=== PATIENT | male | born 1940 | race Caucasian/White ===

== ENCOUNTER 2016-08-19 08:16 | Emergency (ER) | payer MEDICARE, OTHER ==
[~2016-08-19] VITALS: Ht 177.8 cm; Wt 134.1 kg
[~2016-08-19 08:16] MED LIST: AMOX500T2 PO; ASPI-973 PO; ATEN25TA PO; DUTA0.5C2 PO; ENOX150D SUBQ; ESCI10TA3 PO; GABA-502 PO; INSU100V27 SUBQ; INSU100V7 SUBQ; KEN1O TOPICAL; OXYB5TAB10 PO; SIMV20TA4 PO; SULF1TAB7 PO; TAMS0.4C29 PO; WARF2.5T82 PO
[2016-08-19 08:25] VITALS: BP 113/76; PULSE 76; RESP 20; O2SAT 96
--- NOTE | 2016-08-19 08:37 | ED.REPORT ---
HPI-General Illness Date of Service August 19, 2016 ED Provider: Henok Manzo DO The pt is a 75 y/o male anticoagulated on Warfarin w/ a hx of DVTs, HTN, presenting to the ED complaining of L eye bleeding onset 3 days ago. He is also experiencing whole body aches, left arm muscle tightness, slight vision decrease , and left jaw pain. He was told 2 days ago that his Warfarin levels were too high to measure. He denies vomiting blood, blood in stool, black or tarry stools , gingival bleeding during brushing, cough, fever, or chills. Nursing Notes Stated Complaint: BLEEDING IN LT EYE/WARFARIN HIGH Chief Complaint: General Complaint Nursing Notes Reviewed: Yes Allergies: Coded Allergies: linezolid (Verified Allergy, Severe, thrombocytopenia, 12/13/15) drops platelet count Scheduled Amoxicillin (Amoxicillin) 500 Mg Tablet 500 MG PO TID Aspirin (Aspirin) 81 Mg Tablet 81 MG PO DAILY Atenolol (Atenolol) 25 Mg Tablet 25 MG PO DAILY Dutasteride (Avodart) 0.5 Mg Capsule 0.5 MG PO DAILY Escitalopram Oxalate (Lexapro) 10 Mg Tablet 20 MG PO DAILY Gabapentin (Gabapentin) 300 Mg Capsule 300 MG PO QID Insulin Glargine (Lantus U100 Insulin Vial) 100 Unit/Ml Vial 12 UNIT SUBQ BID Insulin Regular, Human (Novolin-R U100 Insulin Vial) 100 Unit/1 Ml Vial UNITS SUBQ TIDAC Per sliding scale protocol Oxybutynin Chloride (Oxybutynin Chloride) 5 Mg Tablet 5 MG PO BID Simvastatin (Simvastatin) 20 Mg Tablet 20 MG PO HS Tamsulosin ER (Tamsulosin ER) 0.4 Mg Cap.er.24h 0.4 MG PO DAILY Warfarin Sodium (Warfarin Sodium) 3 Mg Tablet 3 MG PO DAILY General Time Seen by MD: 08:37 Chief Complaint Other (Bleeding in L eye ) Hx Obtained From: Patient Arrived By: Walk-in Sudden in Onset?: Yes Onset Occurred: 3 days ago Symptom Duration: Since onset Recent Healthcare: No recent hospitalization, Recent doctor visit Past Medical History Past Medical History History of complete heart block Obstructive sleep apnea History of MRSA arthritis of right knee Chronic right bundle-branch block dyslipidemia History of renal insufficiency History of kidney stones Diabetes with neuropathy Hypertension History of IgG deficiency history of hypogonadism Skin cancer Reports: Dementia Past Surgical History Pacemaker Left knee Lap band surgery Right knee sugery x 9 IVC filter for LE DVT 2010 at [facility] in [place] Family History Noncontributory Smoking History Former Smoker Social History Alcohol Use: "Social" Drug Use: Denies drug use Other Social History: Good social support, Local resident Ambulatory Status Independent Review of Systems L eye bleeding Myalgia L arm muscle "tightness" Slight vision decrease L jaw pain Full Review of Systems Constitutional: Denies: Chills, Fever Respiratory: Denies: Non-productive cough GI: Denies: Bloody/tarry stool, Vomiting Complete sys rev & neg: except as marked. Physical Exam Vital Signs Vital Signs Date Time Temp Pulse Resp B/P Pulse Ox O2 Delivery O2 Flow Rate FiO2 08/19/16 08:25 36.0 76 20 113/76 96 Room Air Initial VS: Reviewed General/Constitutional: Well-developed, Well-nourished ENT: Mucous membranes moist, Conjunctiva normal, No scleral icterus Neck: Supple, Non-tender, Full range of motion Respiratory: Breath sounds normal, Clear to auscultation, No respiratory distress Cardiovascular: Regular rate & rhythm, Heart sounds normal, Intact distal pulses Abdomen / GI: Soft, Non-tender, No guarding, No rebound, No distention Back: No CVA tenderness Extremities: Vascular intact, Neuro intact, No swelling, No tenderness Skin: Warm, Dry, No cyanosis Neurologic: Alert, Oriented, Nonfocal Psychiatric: Mood/affect normal, Behavior normal, Normal thought content Head / Eyes: Normocephalic, PERRL, EOMI Outer margin of the conjunctiva has subconjunctival hemorrhage. Funduscopic exam normal 20 40 Left 20 40 Right 20 30 Bilat Interpretation & Diagnostics Lab Results Interpretation Result Diagram: 08/19/16 0904 08/19/16 0904 Test 08/19/16 09:04 White Blood Count 8.5th/mm3 (3.8-10.1) Red Blood Count 3.78mil/mm3 (4.40-5.80) Hemoglobin 9.3g/dL (13.8-17.2) Hematocrit 30.8% (41.0-50.0) Mean Corpuscular Volume 81.5fL (81-100) Mean Corpuscular Hemoglobin 24.6pg (27.0-35.0) Mean Corpuscular Hemoglobin Concent 30.2% (32.0-37.0) Red Cell Distribution Width 16.8% (12.3-15.4) Platelet Count 302bil/L (150-400) Neutrophils (%) (Auto) 70.9% (40-74) Lymphocytes (%) (Auto) 19.5% (14-46) Monocytes (%) (Auto) 7.9% (4-12) Eosinophils (%) (Auto) 1.3% (0-5) Basophils (%) (Auto) 0.2% (0-3) Prothrombin Time 200.2sec (8.1-12.5) Prothromb Time International Ratio 18.89ratio Sodium Level 139mEq/L (134-144) Potassium Level 4.6mEq/L (3.5-5.2) Chloride Level 101mEq/L (97-108) Carbon Dioxide Level 26mmol/L (18-29) Blood Urea Nitrogen 19mg/dL (8-27) Creatinine 1.04mg/dL (0.76-1.27) Estimat Glomerular Filtration Rate 74mL/min (>59) Glucose Level 204mg/dL (60-99) Calcium Level 9.1mg/dL (8.5-10.1) Re-Eval/Medical Decision Med Decision/Clinical Course Patient has subconjunctival hemorrhage. Does not appear to have life-threatening bleeding. There is a small downtrending in his hemoglobin and hematocrit without any reported signs or symptoms of active bleeding and he is not at a point of requiring transfusion. He is given vitamin K orally, 10 mg. He is instructed to follow-up with the Coumadin clinic tomorrow or return to the ER for more bleeding. Source of Hx: Old records Time of Eval: 10:31 Re-Evaluation/Progress Note: Pt rechecked. Informed pt of plan for treatment. Pt understands and agrees with plan for treatment. F/U instructions and RTER warnings given. All questions addressed. Counseled Regarding: Diagnosis, Need for follow-up, When/why to return to ED Discharge & Departure Primary Impression: Subconjunctival hemorrhage Laterality: left Qualified Code: H11.32 - Conjunctival hemorrhage, left eye Additional Impression: Supratherapeutic INR Disposition: Home Discharge Condition All VS Reviewed: Yes Condition: Stable Additional Instructions: Today your INR was 18. You were given 10 mg of oral vitamin K. The Bleeding in your eye is a subconjunctival hemorrhage and is not life-threatening. Follow -up with the Coumadin clinic tomorrow for repeat evaluation. Obviously, stop taking your Coumadin. Referrals: Clayton Cordoba MD (PCP) Scribe Attestation Portions of this note were transcribed by Klaus Mccabe and Bal Isaacs. I, Dr. Lona Quigley personally performed the history, physical exam and medical decision- making; I reviewed and confirmed the accuracy of the information in the transcribed note. Signed by: Klaus Mccabe and Daniel Alfred, 08/19/16 and 1056. copies to: Clayton Cordoba MD, Timothy Ewdin DELANEY August 19, 2016 08:37 Klaus Mccabe August 19, 2016 08:49 BAL ISAACS August 19, 2016 11:10
[2016-08-19 09:11] LABS: BASOPHILS % (AUTO) 0.2 % (0-3); EOSINOPHILS % (AUTO) 1.3 % (0-5); MONOCYTES % (AUTO) 7.9 % (4-12); Mean Corpuscular Hemoglobin 24.6 pg (27.0-35.0); Mean Corpuscular Volume 81.5 fL (81-100); NEUTROPHILS % (AUTO) 70.9 % (40-74); Platelet Count 302 bil/L (150-400)
[2016-08-19] MEDS ORDERED: WARF3TAB7 PO (09:31)
[2016-08-19 10:22] LABS: INR 18.89 ratio
[2016-08-19] MEDS ORDERED: Phytonadione (Adult) 10 mg/1 mL Inj PO ONE (10:25)
[2016-08-19 11:29] VITALS: BP 130/74; PULSE 60; RESP 16
== END 2016-08-19 11:29 | disposition home or self-care (01) ==
LOC: SED 08:16
DX: H11.32 Conjunctival hemorrhage, left eye (principal); R79.1 Abnormal coagulation profile; E11.9 Type 2 diabetes mellitus without complications; I10 Essential (primary) hypertension; Z95.0 Presence of cardiac pacemaker; Z79.01 Long term (current) use of anticoagulants; Z79.82 Long term (current) use of aspirin; Z79.4 Long term (current) use of insulin; Z87.891 Personal history of nicotine dependence; Z88.8 Allergy status to other drugs, medicaments and biological substances
CPT/HCPCS: 36415; 80048; 85025; 85610; 99283; J3430

== ENCOUNTER 2016-11-18 09:46 | Emergency (ER) | payer MEDICARE, OTHER ==
[~2016-11-18] VITALS: Ht 177.8 cm; Wt 134.1 kg
[~2016-11-18 09:46] MED LIST changes: -ENOX150D SUBQ; -KEN1O TOPICAL; -SULF1TAB7 PO; -WARF2.5T82 PO; +WARF3TAB7 PO
[2016-11-18 09:48] VITALS: BP 145/83; PULSE 72; RESP 18; O2SAT 97
--- NOTE | 2016-11-18 10:19 | ED.REPORT ---
HPI-Dyspnea / Wheezing Date of Service Nov 18, 2016 ED Provider: Dr. Henok Ashby MD A 76 year old male with a history of DVT on Warfarin, MANGO, and hypertension presents to the ED with dyspnea that began a few days ago. Associated symptoms include SOB, wheezing and a non-productive cough since onset. He also reports experiencing recent diarrhea for the past week. Patient denies any history of COPD, CHF, asthma, or use of an inhaler. He denies any new onset lower extremity edema, chest pain, abdominal pain, nausea, vomiting, bloody stool, bloody emesis, fever or chills. The patient denies any recent sick contacts with similar symptoms. Nursing Notes Stated Complaint: SOB, WHEEZING Chief Complaint: Respiratory Complaints Nursing Notes Reviewed: Yes Allergies: Coded Allergies: linezolid (Verified Allergy, Severe, thrombocytopenia, 12/13/15) drops platelet count Scheduled Albuterol HFA (Proair HFA) 8.5 Gm Hfa.aer.ad 2 PUFFS INHALATION Q4H Amoxicillin (Amoxicillin) 500 Mg Tablet 500 MG PO TID Aspirin (Aspirin) 81 Mg Tablet 81 MG PO DAILY Atenolol (Atenolol) 25 Mg Tablet 25 MG PO DAILY Doxycycline Monohyd (Doxycycline Monohyd) 100 Mg Capsule 100 MG PO BID Dutasteride (Avodart) 0.5 Mg Capsule 0.5 MG PO DAILY Escitalopram Oxalate (Lexapro) 10 Mg Tablet 20 MG PO DAILY Gabapentin (Gabapentin) 300 Mg Capsule 300 MG PO QID Insulin Glargine (Lantus U100 Insulin Vial) 100 Unit/Ml Vial 12 UNIT SUBQ BID Insulin Regular, Human (Novolin-R U100 Insulin Vial) 100 Unit/1 Ml Vial UNITS SUBQ TIDAC Per sliding scale protocol Oxybutynin Chloride (Oxybutynin Chloride) 5 Mg Tablet 5 MG PO BID Simvastatin (Simvastatin) 20 Mg Tablet 20 MG PO HS Tamsulosin ER (Tamsulosin ER) 0.4 Mg Cap.er.24h 0.4 MG PO DAILY Warfarin Sodium (Warfarin Sodium) 3 Mg Tablet 3 MG PO DAILY General Time Seen by MD: 10:18 Chief Complaint Shortness of breath Hx Obtained From: Patient Arrived By: Walk-in Sudden in Onset?: No Onset Occurred: 3 days ago Symptom Duration: Since onset Location: : None Associated with: Reports: Cough, Denies: Chest pain, Fever, Nausea, Vomiting Pertinent Negative: Pt denies other symptoms Recent Healthcare: No recent doctor visit, No recent hospitalization Past Medical History Past Medical History 1. History of complete heart block 2. Obstructive sleep apnea 3. History of MRSA arthritis of right knee 4. Chronic right bundle-branch block dyslipidemia 5. History of renal insufficiency 6. History of kidney stones 7. Diabetes with neuropathy 8. Hypertension 9. History of IgG deficiency history of hypogonadism 10. Skin cancer Past Surgical History 1. Pacemaker 2. Left knee 3. Lap band surgery 4. Right knee sugery x 9 5. IVC filter for LE DVT 2010 at [facility] in [place] Family History Noncontributory Smoking History Former Smoker Social History Alcohol Use: "Social" Drug Use: Denies drug use Other Social History: Good social support, Local resident Ambulatory Status Independent Review of Systems Constitutional: Denies: Chills, Fever Respiratory: Reports: Non-productive cough, Shortness of breath, Wheezing Cardiovascular: Denies: Chest pain, Edema Complete sys rev & neg: except as marked. GI: Reports: Diarrhea, Denies: Hematemesis, Hematochezia, Nausea, Vomiting Physical Exam Initial Vital Signs Vital Signs (First) Date Time Temp Pulse Resp B/P Pulse Ox O2 Delivery O2 Flow Rate FiO2 11/18/16 09:48 36.4 72 18 145/83 97 Room Air Initial VS: Reviewed Head / Eyes: Atraumatic, Normocephalic, PERRL Extremities: Vascular intact, Neuro intact, No swelling, No tenderness Skin: Warm, Dry, No cyanosis Neurologic: Alert, Oriented, Nonfocal Psychiatric: Mood/affect normal, Behavior normal, Normal thought content General/Constitutional: Awake, Alert, No acute distress Neck: Atraumatic, Supple, Full range of motion Respiratory / Chest: Atraumatic, No respiratory distress Wheezing / Retractions: Positive: Wheeze insp/exp diffuse Cardiovascular: Heart rate NL, Regular rhythm, Heart sounds NL Interpretation & Diagnostics Lab Results Interpretation Result Diagram: 11/18/16 1014 11/18/16 1014 Test 11/18/16 09:14 11/18/16 10:14 11/18/16 10:23 Prothrombin Time 27.8sec (8.1-12.5) Prothromb Time International Ratio 2.55ratio Magnesium Level 1.8mg/dL (1.6-2.6) Troponin T 0.010ug/L (0.0-0.011) Pro-B-Type Natriuretic Peptide 179.0pg/mL (0-486) Procalcitonin 0.05ng/mL (0.00-0.08) White Blood Count 8.5th/mm3 (3.8-10.1) Red Blood Count 4.83mil/mm3 (4.40-5.80) Hemoglobin 11.7g/dL (13.8-17.2) Hematocrit 38.1% (41.0-50.0) Mean Corpuscular Volume 78.9fL (81-100) Mean Corpuscular Hemoglobin 24.2pg (27.0-35.0) Mean Corpuscular Hemoglobin Concent 30.7% (32.0-37.0) Red Cell Distribution Width 16.7% (12.3-15.4) Platelet Count 309bil/L (150-400) Neutrophils (%) (Auto) 65.6% (40-74) Lymphocytes (%) (Auto) 23.3% (14-46) Monocytes (%) (Auto) 9.2% (4-12) Eosinophils (%) (Auto) 1.3% (0-5) Basophils (%) (Auto) 0.5% (0-3) Sodium Level 140mEq/L (134-144) Potassium Level 4.3mEq/L (3.5-5.2) Chloride Level 103mEq/L (97-108) Carbon Dioxide Level 24mmol/L (18-29) Blood Urea Nitrogen 20mg/dL (8-27) Creatinine 1.03mg/dL (0.76-1.27) Estimat Glomerular Filtration Rate 74mL/min (>59) Glucose Level 151mg/dL (60-99) Calcium Level 9.2mg/dL (8.5-10.1) Total Bilirubin 0.2mg/dL (0.0-1.2) Aspartate Amino Transf (AST/SGOT) 17U/L (0-50) Alanine Aminotransferase (ALT/SGPT) 10U/L (0-44) Alkaline Phosphatase 63U/L (25-160) Total Protein 6.9g/dL (6.4-8.4) Albumin 3.7g/dL (3.4-5.0) Lactic Acid Level 1.7mmol/L (0.4-2.0) ECG Interpretation ECG Interpretation: Junctional rhythm Rate 60 bpm Time: 10:27 Interpreted by: ED physician X-Ray Chest Interpretation Chest Xray Interpretation: IMPRESSION: No acute cardiopulmonary disease. Dictated by: Phillip Thornton M.D. on 11/18/2016 at 10:49 Interpretation / Wet Read by: Interpret - Radiologist Re-Eval/Medical Decision Med Decision/Clinical Course Patient presents complaining of audible wheezing. Initial differential diagnosis is broad given his past medical history of advanced stage. Because of his comorbid conditions a more resource intensive workup was performed. Ultimately a cardiogenic cause is unlikely. Pulmonary embolism seems equally is unlikely given normal vital signs as well as a therapeutic INR. There is no evidence of pneumonia. He did have significant symptomatic improvement after a single nebulizer treatment in the ER. He did get up and ambulate at his normal baseline, which is only about 5-10 feet with a front wheel walker. He feels better he wishes to go home. Suspect that this is either a upper respiratory infection or bronchitis. Again given his comorbid conditions both albuterol with a spacer and a course of doxycycline are prescribed. He is strongly encouraged to follow-up very closely with his doctor and return to the ER immediately for any worsening symptoms. Re-Evaluation/Progress : Time of Eval: 11:18 Treatment Summary: Albuterol nebulizer x 1 Re-Evaluation/Progress Note: The patient has mildly improved upon recheck. Wheeze still present. Differential Diagnosis: Positive: Acute coronary syndrome, Allergic reaction, Asthma, Bronchitis, Cardiogenic shock, Congestive heart failure, Dysrhythmia, Hypertensive emergency, Myocardial infarction, Pneumonia, Pulmonary embolism, Respiratory failure, Respiratory insufficiency, Upper resp infection Counseled Regarding: Diagnosis, Lab results, Need for follow-up, When/why to return to ED Discharge & Departure Impression: Primary Impression: Upper respiratory infection URI type: unspecified URI Qualified Code: J06.9 - Acute upper respiratory infection, unspecified Disposition: Home Discharge Condition All VS Reviewed: Yes Condition: Stable Patient Instructions: Dyspnea (ED), Upper Respiratory Infection (ED) Additional Instructions: Thank you for trusting us with your care this morning. Your emergency department evaluation today including examination, lab work, EKG and chest X-ray are reassuring. Take doxycycline 2 times per day for 7 days. Albuterol with a spacer as prescribed Please call in the morning in order to schedule a follow-up appointment with your primary care physician in the 2-3 days for a recheck. Please return to the emergency department for any new or worsening conditions including any difficulty breathing, fevers, chills, chest pain, lightheadedness or weakness. Referrals: Clayton Cordoba MD (PCP) Scribe Attestation Portions of this note were transcribed by Nidhi Rondon. I, Dr. Henok Ashby personally performed the history, physical exam and medical decision- making; I reviewed and confirmed the accuracy of the information in the transcribed note. copies to: Clayton Cordoba MD, Timothy S DO Nov 18, 2016 10:19 NIDHI RONDON Nov 18, 2016 10:24
[2016-11-18] MEDS ORDERED: Albuterol-Ipratropium 3 mL Inhalation Solution NEB ONE (10:25)
[2016-11-18 10:31] LABS: BASOPHILS % (AUTO) 0.5 % (0-3); EOSINOPHILS % (AUTO) 1.3 % (0-5); MONOCYTES % (AUTO) 9.2 % (4-12); Mean Corpuscular Hemoglobin 24.2 pg (27.0-35.0); Mean Corpuscular Volume 78.9 fL (81-100); NEUTROPHILS % (AUTO) 65.6 % (40-74); Platelet Count 309 bil/L (150-400)
[2016-11-18 10:41] VITALS: PULSE 63; RESP 18; O2SAT 95
[2016-11-18 10:48] LABS: INR 2.55 ratio
--- NOTE | 2016-11-18 10:51 | DRSVH ---
PROCEDURE: X-RAY CHEST ONE VIEW, PORTABLE ([id number]) INDICATIONS: 76 year-old male with shortness of breath. TECHNIQUE: One view of the chest was acquired. COMPARISON: [facility], CR, XR CHEST 1VW (PORTABLE), 11/23/2015, 16:36. [facility], CR, CHEST 1VW (PORTABLE), 10/20/2014, 14:49. [facility], CR, CHEST 1VW (PORTABLE) , 01/05/2014, 8:53. FINDINGS: Surgical changes and devices: Left chest wall dual chamber pacemaker is again noted. Lungs and pleura: No pleural effusions or pneumothorax. Lungs are clear. Mediastinum: Mediastinal contours appear normal. Heart size is normal. There is aortic atheroscler osis. Bones and chest wall: No suspicious bony lesions. Overlying soft tissues appear unremarkable. IMPRESSION: No acute cardiopulmonary disease. Dictated by: Phillip Thornton M.D. on 11/18/2016 at 10:49 Approved by: Phillip Thornton M.D. on 11/18/2016 at 10:49
[2016-11-18 11:22] LABS: TROPONIN T 0.01 ug/L (0.0-0.011)
[2016-11-18 11:32] LABS: Magnesium 1.8 mg/dL (1.6-2.6)
[2016-11-18 12:05] VITALS: BP 125/71; PULSE 77; RESP 22; O2SAT 97
[2016-11-18] MEDS ORDERED: ALBU8.5H2 INHALATION (12:17)
[2016-11-18] MEDS ORDERED: DOXY100C43 PO (12:17)
[2016-11-18 12:37] VITALS: BP 125/71; PULSE 77; RESP 22; O2SAT 97
== END 2016-11-18 12:38 | disposition home or self-care (01) ==
LOC: SED 09:46
DX: J06.9 Acute upper respiratory infection, unspecified (principal); E11.40 Type 2 diabetes mellitus with diabetic neuropathy, unspecified; I10 Essential (primary) hypertension; Z86.718 Personal history of other venous thrombosis and embolism; Z85.828 Personal history of other malignant neoplasm of skin; Z95.0 Presence of cardiac pacemaker; Z87.891 Personal history of nicotine dependence; Z79.01 Long term (current) use of anticoagulants; Z79.82 Long term (current) use of aspirin; Z79.4 Long term (current) use of insulin; Z79.899 Other long term (current) drug therapy; Z88.1 Allergy status to other antibiotic agents
CPT/HCPCS: 36415; 71010; 80053; 83605; 83735; 83880; 84145; 84484; 85025; 85610; 87040; 93005; 94664; 99285; J7620